=== PATIENT | male | born 1975 | race Caucasian/White ===

== ENCOUNTER 2025-06-26 21:53 | Emergency (ER) | payer MEDICAID ==
[~2025-06-26] VITALS: Ht 165.1 cm; Wt 97.5 kg
[2025-06-26 22:02] VITALS: BP 129/87; PULSE 91; RESP 22; TEMP 97.5; O2SAT 96
[2025-06-26] MEDS: LORazepam 2 MG/ML VIAL IM ONE (23:13)
== END 2025-06-26 23:33 | disposition home or self-care (01) ==
LOC: EMS 21:53
DX: F15.10 Other stimulant abuse, uncomplicated (principal); F41.9 Anxiety disorder, unspecified; F12.90 Cannabis use, unspecified, uncomplicated; F17.210 Nicotine dependence, cigarettes, uncomplicated; Z98.890 Other specified postprocedural states; Z88.5 Allergy status to narcotic agent
CPT/HCPCS: 99283; 96372; J2060